=== PATIENT | male | born 1965 | race African-American/Black ===

== ENCOUNTER 2022-03-27 23:54 | Emergency (ER) | payer MEDICAID ==
[~2022-03-27] VITALS: Ht 172.7 cm; Wt 82.0 kg
[2022-03-27 23:59] VITALS: BP 156/109
[2022-03-28] MEDS ORDERED: DIPHENHYDRAMINE 50MG/ML VIAL IM STA (00:19)
[2022-03-28] MEDS ORDERED: HALOPERIDOL LACTATE 5MG/ML VIAL IM STA (00:19)
[2022-03-28] MEDS ORDERED: LORAZEPAM 2MG/ML CPJ IM STA (00:19)
== END 2022-03-28 01:15 | disposition left against medical advice (07) ==
LOC: ER 23:54
DX: R41.82 Altered mental status, unspecified (principal); F19.10 Other psychoactive substance abuse, uncomplicated
CPT/HCPCS: 99283